=== PATIENT | female | born 1940 ===

== ENCOUNTER 2024-07-23 09:55 | Emergency (ER) | payer OTHER, SELFPAY ==
[2024-07-23 10:04] VITALS: BP 156/82
[2024-07-23 10:48] LABS: NT-proBNP 511 pg/ml; Troponin I < 0.012 ng/ml
[2024-07-23 11:09] LABS: ALT (SGPT) 72 U/L (0-35); AST (SGOT) 63 U/L (14-36); Albumin 4.1 g/dl (3.5-5.0); Alkaline Phosphatase 182 U/L (38-126); Blood Urea Nitrogen 11 mg/dl (7-17); Carbon Dioxide 23 mmol/L (22-30); Chloride 96 mmol/L (98-107); Glucose 106 mg/dl (70-99); Potassium 4.1 mmol/L (3.5-5.1); Sodium 133 mmol/L (135-145); Total Bilirubin 2.2 mg/dl (0.2-1.3); Total Protein 6.7 g/dl (6.3-8.2); eGFR > 60.00
[2024-07-23 11:20] LABS: % Basophils 0.4 % (0-2); % Immature Granulocytes 0.7 % (0-0.5); % Lymphocytes 6.5 % (20.5-51.1); % Monocytes 8.4 % (1.7-9.3); Absolute Basophils 0.1 10^3/uL (0-0.2); Absolute Eosinophils 0.2 10^3/uL (0-0.7); Absolute Immature Granulocytes 0.1 10^3/uL (0-0.05); Absolute Lymphocytes 1.2 10^3/uL (1.2-3.4); Absolute Monocytes 1.5 10^3/uL (0.1-0.6); Absolute Neutrophils 15.1 10^3/uL (1.4-6.5); Hematocrit 36.9 % (37.0-47.0); Hemoglobin 13.2 g/dL (12.0-16.0); Mean Corp Hgb Conc. 35.8 g/dL (33.0-37.0); Mean Corpuscular Hgb 34.7 pg (27.0-31.0); Mean Corpuscular Volume 97.1 fL (81.0-99.0); Nucleated Red Blood Cells % 0 %; Platelet Count 325 10^3/uL (130-400); Red Cell Dist. Width 14.1 % (11.5-14.5); White Blood Cell Count 18.1 10^3/uL (4.8-10.8)
--- NOTE | 2024-07-23 13:25 | ED.GENMED ---
History of Present Illness
General
Chief Complaint: Weakness
Source: patient
Time Seen by Provider: 07/23/24 12:58
History of Present Illness
History of Present Illness:
84-year-old female presents to the emergency room complaining of malaise. Patient states that she has felt a lack of energy for the past couple weeks. Patient had a cardioversion on July 14. For a month or 2 prior to that she was started on
metoprolol and amiodarone for A-fib. She has been continuing these medications. Patient felt like the medication was causing her to have the malaise but she spoke to her user experience lead to reduce the dosages. Despite that she does not feel any
better. Patient denies any chest pain, shortness of breath, cough, fever. She has noted some increased urination but no dysuria. Patient does not take any diuretics.
Phy Exam
Physical Exam
Physical Exam:
General: Awake, Alert, Oriented X3. No acute distress, appears stated age
Vitals: unremarkable
Head: Atraumatic
Eyes: Pupils equal, EOMI
Throat: Airway intact, no exudates
Neck: Trachea midline
Lungs: Clear and equal b/l
Heart: Regular rate, no murmurs
Abd: Soft, Nontender, No pulsatile mass
Neuro: Nonfocal
Skin: Warm, dry, no rash
Extremities: pulses equal b/l, trace edema
Course
Orders/Labs/Results
Orders:
Orders
07/23/24 10:07
ECG [Electrocardiogram (*1)] Urgent
Reason for Study: Fatigue / Weakness
EKG- Treatment ONCE
07/23/24 10:12
Complete Blood Count/With Diff Urgent
Comprehensive Metabolic Panel Urgent
NT-proBNP Urgent
Troponin I Urgent
07/23/24 13:21
CR Chest - 2 Views Urgent
Comment:
Reason For Exam: malaise
07/23/24 14:24
Urinalysis Reflex To Culture Urgent
Date Specimen was Collected: 07/23/24
Time Specimen was Collected: 13:38
Urine Microscopic Reflex Cult Urgent
Abnormal Lab Results
07/23/24 07/23/24
10:12 14:24
WBC 18.1 H 10^3/uL
(4.8-10.8)
RBC 3.80 L 10^6/uL
(4.20-5.40)
Hct 36.9 L %
(37.0-47.0)
MCH 34.7 H pg
(27.0-31.0)
Abs Immat Gran (auto) 0.1 H 10^3/uL
(0-0.05)
Absolute Neuts (auto) 15.1 H 10^3/uL
(1.4-6.5)
Absolute Monos (auto) 1.5 H 10^3/uL
(0.1-0.6)
Immature Gran % 0.7 H %
(0-0.5)
Neutrophils % 83.0 H %
(42.2-75.2)
Lymphocytes % 6.5 L %
(20.5-51.1)
Sodium 133 L mmol/L
(135-145)
Chloride 96 L mmol/L
(98-107)
Glucose 106 H mg/dl
(70-99)
Total Bilirubin 2.2 H mg/dl
(0.2-1.3)
AST 63 H U/L
(14-36)
ALT 72 H U/L
(0-35)
Alkaline Phosphatase 182 H U/L
(38-126)
Urine Ketones 1+ A
(Negative)
Ur Occult Blood Reflex 3+ A
(Negative)
Urine Bilirubin 1+ A
(Negative)
Leukocyte Esterase Rfl Trace A
(Negative)
Urine Albumin (Reflex) 1+ A
(Neg - Trace)
07/23/24 10:12
07/23/24 10:12
Vital Signs
Initial and Last Documented VS:
Initial Vital Signs
Temp Pulse Resp BP Pulse Ox
99.0 F 88 16 156/82 95
07/23/24 10:04 07/23/24 10:04 07/23/24 10:04 07/23/24 10:04 07/23/24 10:04
Last Documented Vital Signs
Temp Pulse Resp BP Pulse Ox
99.0 F 85 17 162/88 98
07/23/24 10:04 07/23/24 15:58 07/23/24 15:58 07/23/24 15:58 07/23/24 15:58
MDM/Problems Addressed
Differential Diagnosis Includes:
medication side effect, uti, electrolyte abn, viral illness
MDM/Problems Addressed:
Patient presents with fatigue and weakness. She is hemodynamically stable and afebrile. Labs show a mild elevation of her white blood cell count at 18.1. Chemistries show essentially normal findings. LFTs are mildly elevated. Patient states
these have been elevated before. There is no evidence of an unstable or acute process. Symptoms may be medication related. Recommend she discuss this with her user experience lead. Patient stable for discharge home and outpatient follow-up.
Chronic conditions affecting care: HTN and Arrhythmia
*EKG
Interpreted by ED Provider?: Yes
Heart Rate: 88
Rate: normal
Rhythm: sinus
[place]: normal axis
Interval: normal interval
Ischemia: no ischemia
*O[employer] Fishing Tool Operator Interpretation
Rate: normal
Interpretation: normal
Rhythm: sinus
*Critical Care Note
Total Time (30-74mins, 75-104mins- exclusive of procedures): Not Applicable
ED Attending Note
-
Portions of this chart may have been created with voice recognition software.� Occasional wrong word or��sound alike� substitutions may have occurred due to the inherent limitations of voice recognition software.
Discharge Plan
Departure
Patient Disposition: Home (Routine Discharge)
Date of Disposition: 07/23/24
Time of Disposition: 15:36
Patient with high blood pressure during this ER visit?: Yes
Condition: Good
Discharge Problem:
Malaise and fatigue
Instructions: Generalized Weakness (DC)
Referrals:
Nacho Pearson MD [Family Provider] -
Activity Restrictions/Additional Instructions:
Discussed possible medication changes with your user experience lead.
Interventions
Interventions:
*General Assessment Last Done: 07/23/24 13:30
ED- Fall Risk Assessment Last Done: 07/23/24 13:30
*Nursing Disposition Last Done: 07/23/24 15:59
ED- Cardiac Assessment Last Done: 07/23/24 13:30
ED- Neurological Assessment Last Done: 07/23/24 13:30
ED- Pulmonary Assessment Last Done: 07/23/24 13:30
Discharge Date and Time
Discharge Date/Time: 07/23/24 16:00
Print Language: LIBERIAN
[2024-07-23 14:34] LABS: Urine Albumin 1+ (Neg - Trace); Urine Bilirubin 1+ (Negative); Urine Character Clear (Clear); Urine Color Amber; Urine Glucose Negative (Negative); Urine Ketone 1+ (Negative); Urine Leukocyte Trace (Negative); Urine Nitrite Negative (Negative); Urine Occult Blood 3+ (Negative); Urine Specific Gravity 1.015 (<1.030); Urine Urobilinogen 1+ (Neg - 1+); Urine pH 6.5 (5.0-9.0)
[2024-07-23 14:54] LABS: Urine Calcium Oxalate Crystals Present
[2024-07-23 14:55] LABS: Urine Squamous Cell >30 /LPF (Few)
[2024-07-23 14:56] LABS: Urine Mucus Few; Urine Red Blood Cell 0-2 /HPF (0-2)
[2024-07-23 15:58] VITALS: BP 162/88
== END 2024-07-23 16:00 | disposition home or self-care (01) ==
LOC: EMR 09:55
PROVIDERS: Emergency Medicine; EMERGENCY PHYSICIAN Emergency Medicine; FAMILY PHYSICIAN Internal Medicine
DX: R53.81 Other malaise (principal); R53.83 Other fatigue; I10 Essential (primary) hypertension; I48.91 Unspecified atrial fibrillation; Z79.899 Other long term (current) drug therapy
CPT/HCPCS: 99283; 71046; 80053; 81003; 81015; 83880; 84484; 85025; 93005

== ENCOUNTER 2025-09-18 07:52 | Emergency (ER) | payer OTHER, SELFPAY ==
[2025-09-18 08:00] VITALS: BP 176/60; BMI 31.0
--- NOTE | 2025-09-18 08:00 | ED.GENMED ---
History of Present Illness
General
Chief Complaint: Heart Rate Problem
Time Seen by Provider: 09/18/25 08:00
History of Present Illness
History of Present Illness:
FOCUSED PAST MEDICAL HISTORY
- Atrial fibrillation, high blood pressure
REVIEW OF OLD RECORDS
- I reviewed records, the patient was seen here in July 2024 with malaise; on July 14, 2024, the patient had cardioversion and prior to that was on metoprolol and amiodarone for atrial fibrillation. In July 2024 her white count was
elevated 18 point
Note:
CHIEF COMPLAINT(S)
Anxiety and shortness of breath since last night.
HISTORY OF PRESENT ILLNESS
The patient is an 85-year-old female with a history of atrial fibrillation and prior cardioversion in July 2020, presenting with symptoms of anxiety and shortness of breath that began last night after going to bed around 10 PM. She reports
feeling progressively more anxious and experienced shortness of breath. She denies chest pain and headaches. The patient acknowledges a prior episode of atrial fibrillation managed by her orthophotography technician, Dr. Yuan in [place]. Her current heart rate
is approximately 70 beats per minute, which is relatively stable despite her feelings of shakiness. She did not miss any doses of her medications, which include Eliquis (Apixaban), Metoprolol (Toprol), and Amiodarone, and took them last night when
she began feeling uneasy.
The patient lives on the second floor and mentioned difficulty getting down the stairs due to knee pain, prompting her to seek medical attention and arrive by ambulance. She reports her son and daughter live with her, and her son is expected to
arrive at the hospital.
PAST MEDICAL AND SURGICAL HISTORY
- Atrial fibrillation with history of cardioversion.
SOCIAL DETERMINANTS AFFECTING HEALTH
The patient lives with her son and daughter and resides in a second-floor condo. She mentions knee pain affecting her mobility, particularly when using stairs.
MEDICATIONS
- Apixaban (Eliquis)
- Metoprolol (Toprol)
- Amiodarone
PHYSICAL EXAM
General: Alert, no acute distress.
Skin: Warm, dry.
Head: Normocephalic, atraumatic.
Neck: Supple, trachea midline.
Eye Ears, Nose, Mouth and Throat: Oral mucosa moist.
Cardiovascular: Normal peripheral perfusion, No edema. Regular rate and rhythm
Respiratory: Respirations are non-labored.
Gastrointestinal: Abdomen nondistended.
Back: Normal range of motion, Normal alignment.
Musculoskeletal: Normal ROM, normal strength.
Neurological: Alert and oriented to person, place, time, and situation. No focal neurological deficit observed.
Psychiatric: Cooperative, appears somewhat anxious
PROBLEM LIST
Acute:
- Anxiety
- Shortness of breath
- Knee pain
Chronic:
- Atrial fibrillation
PLAN
- Conduct blood work to further evaluate the patient�s condition.
- Consider cardioversion if necessary, based on rhythm assessment and patient symptoms.
- Monitor heart rate and rhythm closely given the history of atrial fibrillation and need for possible rhythm management.
DIFFERENTIAL DIAGNOSIS
The differential diagnosis includes, in no particular order and is not limited to:
1. Anxiety disorder
2. Congestive heart failure exacerbation
3. Chronic obstructive pulmonary disease exacerbation
4. Panic attack
5. Pulmonary embolism
6. Atrial flutter
7. Hypoxia due to underlying respiratory condition
8. Electrolyte imbalance
9. Acute coronary syndrome
10. Medication-related side effects
EKG
- Sinus, normal rate, no acute ST abnormality
LABS
- Troponin 0.019, TSH elevated but free T4 is normal, CBC unremarkable, chemistries unremarkable
UPDATE
- Unremarkable labs
- Sinus rhythm
- No significant symptoms on reassessment
- Spoke to son at bedside
- CXR neg
- Suspect anxiety component
DIAGNOSIS
Palpitations
Phy Exam
Physical Exam
Physical Exam:
See HPI
Course
Orders/Labs/Results
Orders:
Orders
09/18/25 07:54
Electrocardiogram (*1) Urgent
Reason for Study: Shortness of Breath
09/18/25 07:59
EKG- Treatment ONCE
CR Chest - 2 Views Urgent
Comment:
Reason For Exam: cough
09/18/25 08:06
Complete Blood Count/With Diff Urgent
Free T4 Urgent
TSH Reflex To Free T4 Urgent
Comment: ADD ON
Troponin I Urgent
09/18/25 08:08
Add On- LAB Urgent
Tests Added?: magnesium, TSH reflex fT4
EKG- Treatment ONCE
09/18/25 09:20
Comprehensive Metabolic Panel Urgent
Magnesium Urgent
Abnormal Lab Results
09/18/25 09/18/25
08:06 09:20
RBC 4.00 L 10^6/uL
(4.20-5.40)
MCV 101.3 H fL
(81.0-99.0)
MCH 34.8 H pg
(27.0-31.0)
Absolute Neuts (auto) 6.8 H 10^3/uL
(1.4-6.5)
Absolute Monos (auto) 0.7 H 10^3/uL
(0.1-0.6)
Sodium 133 L mmol/L
(135-145)
BUN 22 H mg/dl
(7-17)
TSH (Reflex) 11.90 H uIU/ml
(0.47-4.68)
09/18/25 08:06
09/18/25 09:20
Vital Signs
Initial and Last Documented VS:
Initial Vital Signs
Temp Pulse Resp BP Pulse Ox
36.9 C 65 24 176/60 94
09/18/25 08:00 09/18/25 08:00 09/18/25 08:00 09/18/25 08:00 09/18/25 08:00
Last Documented Vital Signs
Temp Pulse Resp BP Pulse Ox
36.9 C 68 26 128/63 96
09/18/25 08:00 09/18/25 09:00 09/18/25 09:00 09/18/25 09:00 09/18/25 08:20
*Pulse Oximetry
Patient hypoxic: no
*Critical Care Note
Total Time (30-74mins, 75-104mins- exclusive of procedures): Not Applicable
ED Attending Note
-
Portions of this chart may have been created with voice recognition software.� Occasional wrong word or��sound alike� substitutions may have occurred due to the inherent limitations of voice recognition software.
Discharge Plan
Departure
Referrals:
UNKNOWN - PT DOES,NOT KNOW [Family Provider]
Interventions
Interventions:
*Risk Screen - Suicide Last Done: 09/18/25 08:00
*General Assessment Last Done: 09/18/25 08:00
*Neglect/Abuse Screening Last Done: 09/18/25 08:00
*ED COVID-19 Vaccine History Last Done: 09/18/25 08:00
*ED Influenza Vaccine History Last Done: 09/18/25 08:00
ED- Cardiac Assessment Last Done: 09/18/25 08:04
ED- Pulmonary Assessment Last Done: 09/18/25 08:04
Discharge Date and Time
Print Language: BULGARIAN
[2025-09-18 08:41] LABS: Troponin I 0.019 ng/ml
[2025-09-18 08:47] LABS: Hematocrit 40.5 % (37.0-47.0); Hemoglobin 13.9 g/dL (12.0-16.0); Mean Corp Hgb Conc. 34.3 g/dL (33.0-37.0); Mean Corpuscular Volume 101.3 fL (81.0-99.0); Nucleated Red Blood Cells % 0 %; Platelet Count 352 10^3/uL (130-400); Red Cell Dist. Width 14.2 % (11.5-14.5)
[2025-09-18 09:00] VITALS: BP 128/63
[2025-09-18 10:00] VITALS: BP 159/67
[2025-09-18 10:05] LABS: ALT (SGPT) 15 U/L (0-35); AST (SGOT) 26 U/L (14-36); Albumin 4.3 g/dl (3.5-5.0); Alkaline Phosphatase 69 U/L (38-126); Blood Urea Nitrogen 22 mg/dl (7-17); Calcium 9.8 mg/dl (8.4-10.2); Carbon Dioxide 27 mmol/L (22-30); Chloride 103 mmol/L (98-107); Estimated Creatinine Clearance 54 ml/min; Glucose 91 mg/dl (70-99); Magnesium 1.9 mg/dl (1.6-2.3); Potassium 4.7 mmol/L (3.5-5.1); Sodium 133 mmol/L (135-145); Total Protein 7.3 g/dl (6.3-8.2); eGFR > 60.00
== END 2025-09-18 10:59 | disposition home or self-care (01) ==
LOC: EMR 07:52
PROVIDERS: EMERGENCY PHYSICIAN Emergency Medicine
DX: R00.2 Palpitations (principal); I48.91 Unspecified atrial fibrillation; I10 Essential (primary) hypertension; Z79.899 Other long term (current) drug therapy
CPT/HCPCS: 99285; 71046; 80053; 83735; 84439; 84443; 84484; 85025; 93005

== ENCOUNTER 2025-09-30 22:54 | Inpatient (IN) | payer OTHER, SELFPAY ==
[2025-09-30] VITALS (7 sets, daily range): BP systolic 124–143; BP diastolic 51–91; BMI 28.4
[2025-09-30 18:44] LABS: ALT (SGPT) 13 U/L (0-35); AST (SGOT) 22 U/L (14-36); Albumin 4.8 g/dl (3.5-5.0); Alkaline Phosphatase 74 U/L (38-126); Blood Urea Nitrogen 33 mg/dl (7-17); Calcium 10.7 mg/dl (8.4-10.2); Carbon Dioxide 25 mmol/L (22-30); Chloride 101 mmol/L (98-107); Glucose 114 mg/dl (70-99); Potassium 4.6 mmol/L (3.5-5.1); Sodium 136 mmol/L (135-145); Total Protein 7.6 g/dl (6.3-8.2); eGFR > 60.00
[2025-09-30 19:07] LABS: Hematocrit 41.4 % (37.0-47.0); Hemoglobin 14.4 g/dL (12.0-16.0); Mean Corp Hgb Conc. 34.8 g/dL (33.0-37.0); Mean Corpuscular Volume 102.7 fL (81.0-99.0); Nucleated Red Blood Cells % 0 %; Platelet Count 426 10^3/uL (130-400); Red Cell Dist. Width 13.9 % (11.5-14.5)
--- NOTE | 2025-09-30 19:37 | ED.GENMED ---
History of Present Illness
General
Chief Complaint: Breathing Problem
Source: patient
Exam Limitations: none
Time Seen by Provider: 09/30/25 19:31
History of Present Illness
History of Present Illness:
See MDM
Past History
Past History
ED Past Medical History: Arrthythmia, HTN and Psychiatric
ED Past Surgical History: Cholecystectomy and Gynecological
Social History
Tobacco: Non-smoker
Alcohol: None
Phy Exam
Physical Exam
Physical Exam:
See MDM
Scores
Heart Failure Risk
Heart Failure Risk Score: Not Applicable
Course
Orders/Labs/Results
Orders:
Orders
09/30/25 18:08
EKG [Electrocardiogram (*1)] Urgent
Reason for Study: Shortness of Breath
EKG- Treatment ONCE
09/30/25 18:19
BNP [NT-proBNP] Urgent
CBC/With Diff [Complete Blood Count/With Diff] Urgent
CMP [Comprehensive Metabolic Panel] Urgent
Troponin I Urgent
Comment: ADD ON
09/30/25 19:54
COVID-19 Antigen Urgent
Source: Nasal Swab
Influenza A+B Rapid Molecular Urgent
IRENE Source: Nasal Swab
Specimen Description:
09/30/25 20:38
Add On- LAB Urgent
Tests Added?: troponin
CT Chest PE Study Urgent
Comment:
Reason For Exam: sob
09/30/25 22:18
Azithromycin 500 mg/250 ml [Zithromax Infusion] 500 mg in 250 ml IV NOW
CefTRIAXone [Rocephin] 1,000 mg IV NOW STA
09/30/25 22:30
Blood Culture Q30M
IRENE Source: Blood/Venous
Specimen Description:
09/30/25 23:00
Blood Culture Q30M
IRENE Source: Blood/Venous
Specimen Description:
Abnormal Lab Results
09/30/25
18:19
WBC 12.1 H 10^3/uL
(4.8-10.8)
RBC 4.03 L 10^6/uL
(4.20-5.40)
MCV 102.7 H fL
(81.0-99.0)
MCH 35.7 H pg
(27.0-31.0)
Plt Count 426 H 10^3/uL
(130-400)
Absolute Neuts (auto) 9.1 H 10^3/uL
(1.4-6.5)
Absolute Monos (auto) 0.8 H 10^3/uL
(0.1-0.6)
Lymphocytes % 16.2 L %
(20.5-51.1)
BUN 33 H mg/dl
(7-17)
Glucose 114 H mg/dl
(70-99)
Calcium 10.7 H mg/dl
(8.4-10.2)
Total Bilirubin 1.4 H mg/dl
(0.2-1.3)
09/30/25 18:19
09/30/25 18:19
Vital Signs
Initial and Last Documented VS:
Initial Vital Signs
Temp Pulse Resp BP Pulse Ox
97.1 F 71 15 139/91 97
09/30/25 18:09 09/30/25 18:09 09/30/25 18:09 09/30/25 18:09 09/30/25 18:09
Last Documented Vital Signs
Temp Pulse Resp BP Pulse Ox
97.1 F 66 14 124/55 95
09/30/25 18:09 09/30/25 21:53 09/30/25 21:53 09/30/25 21:53 09/30/25 21:53
MDM/Problems Addressed
Differential Diagnosis Includes:
Note:
CHIEF COMPLAINT(S)
Shortness of breath
HISTORY OF PRESENT ILLNESS
The patient is an 85-year-old female with a history of atrial fibrillation. She presents with shortness of breath which has been ongoing recently. The patient mentions a recent episode where she was standing and felt a ash in her chest, prompting
her to take alprazolam, which alleviated her symptoms. She does not always feel her atrial fibrillation episodes but reports previous occurrences of shortness of breath associated with atrial fibrillation. During a recent episode noted on her
lunchroom monitor, she was short of breath and felt weak. She denies fever but reports some cognitive fogginess.
PAST MEDICAL AND SURGICAL HISTORY
History of atrial fibrillation.
PHYSICAL EXAM
General: Alert, no acute distress.
Skin: Warm, dry.
Head: Normocephalic, atraumatic
Neck: Appears supple, trachea midline.
Eyes, Ears, Nose, Mouth, and Throat: Moist mucous membranes
Cardiovascular: No signs of cyanosis. Regular rate and rhythm
Respiratory: Respirations are non-labored. Lungs clear
Abdomen: Non-distended
Musculoskeletal: No deformities
Neurological: No focal neurological deficit observed.
Psychiatric: Cooperative, appropriate mood and affect.
DIFFERENTIAL DIAGNOSIS
The Differential Diagnosis includes, in no particular order and is not limited to:
- Atrial fibrillation with rapid ventricular response
- Congestive heart failure
- Pulmonary embolism
- Chronic obstructive pulmonary disease exacerbation
- Pneumonia
- Asthma exacerbation
- Anemia
- Myocardial infarction
- Anxiety or panic disorder
- Medication side effects
PLAN
- Perform an electrocardiogram (EKG) to evaluate for atrial fibrillation.
- Obtain a chest X-ray to assess for alternative causes of shortness of breath.
- Continue monitoring oxygen saturation and consider further oxygen therapy if needed.
MEDICAL DECISION MAKING
- Complexity of Data Reviewed: Chronic conditions affecting care such as atrial fibrillation.
- Data:
- Category 1: Tests planned include EKG and chest X-ray.
- Category 2: No additional historian involved in the decision-making process.
- Category 3: Future reassessment planned after initial tests to evaluate treatment efficacy.
- Risk:
- Prescription medication was prescribed for home management of symptoms related to atrial fibrillation (metoprolol).
SUMMARY OF ENCOUNTER
An 85-year-old female with a history of atrial fibrillation was seen in the emergency department due to shortness of breath. A recent chest X-ray showed no abnormalities, so a CT scan was performed to rule out pulmonary embolism. The CT scan
indicated a concern for possible pneumonia. The patient experienced shortness of breath with minimal exertion, and her oxygen saturation dropped to 88% during ambulation. As a result, intravenous antibiotics were initiated.
DISPOSITION
Admit
ASSESSMENT
The patient is experiencing shortness of breath potentially due to pneumonia, with a history of atrial fibrillation contributing to her symptoms.
INDEPENDENT REVIEW OF LABS AND INTERPRETATION OF TESTS
My independent interpretation of the CT scan suggests a concern for possible pneumonia.
MEDICAL DECISION MAKING
Chronic conditions affecting care include history of atrial fibrillation. Differential diagnosis includes atrial fibrillation with rapid ventricular response, congestive heart failure, pulmonary embolism, chronic obstructive pulmonary disease
exacerbation, pneumonia, asthma exacerbation, anemia, myocardial infarction, anxiety or panic disorder, and medication side effects.
Category 1:
- My independent interpretation of the CT scan indicates possible pneumonia.
Category 2:
- None.
Category 3:
- None.
DIAGNOSIS
- J18.9 Pneumonia, unspecified organism
- I48.91 Unspecified atrial fibrillation
*Pulse Oximetry
SaO2: 97
Oxygen Mode of Delivery: Room air
Patient hypoxic: no
*Critical Care Note
Total Time (30-74mins, 75-104mins- exclusive of procedures): Not Applicable
ED Attending Note
-
Portions of this chart may have been created with voice recognition software.� Occasional wrong word or��sound alike� substitutions may have occurred due to the inherent limitations of voice recognition software.
Discharge Plan
Departure
Patient Disposition: Admit
Date of Disposition: 09/30/25
Time of Disposition: 22:20
Admit to: Med/Surg
Presentation/result/management discussed w/ accepting MD/DO: Hospitalist
Discharge Problem:
PNA (pneumonia)
Prescriptions:
No Action
amiodarone 200 mg tablet
100 mg PO HS
metoprolol succinate 25 mg tablet extended release 24 hr
25 mg PO DAILY
Eliquis 5 mg tablet
5 mg PO BID
Referrals:
NONE,* [Active, Internal Medicine]
Interventions
Interventions:
*Risk Screen - Suicide Last Done: 09/30/25 18:09
*General Assessment Last Done: 09/30/25 18:09
*Neglect/Abuse Screening Last Done: 09/30/25 18:09
*ED COVID-19 Vaccine History Last Done: 09/30/25 18:09
*ED Influenza Vaccine History Last Done: 09/30/25 18:09
ED- Cardiac Assessment Last Done: 09/30/25 19:41
ED- Pulmonary Assessment Last Done: 09/30/25 19:41
Discharge Date and Time
Print Language: PALAUAN
[2025-09-30 20:15] LABS: COVID-19 Antigen Negative (Negative)
[2025-09-30 21:33] LABS: Troponin I < 0.012 ng/ml
--- NOTE | 2025-09-30 22:21 | HPS.HSE ---
Family Physician
-
Family Physician: Nacho Pearson
Chief Complaint
-
sob
History of Present Illness
85-year-old female with a history of atrial fibrillation,HTN presented to us with sob which is worse with exertion. she felt racing of her heart last night. she denied worsening of her chronic cough. denied chest pain, denied orthopnea. denied
edema. denied fever, chills. she has chronic congestion. denied abdominal pain,n,v,d. denied dysuria or hematuria.
Patient received a dose of azithromycin and ceftriaxone for pneumonia. Blood culture sent from ER. Admitting for further management
Medical History
Past Medical History
Past Medical History: Reports Other
Additional Past Medical History:
A-fib, hypertension, hyperlipidemia, varicose veins
Past Surgical History: Reports Other
Additional Past Surgical History:
Tubularization, hysterectomy,
Social History
Tobacco: Non-smoker
Alcohol: None
Drug: None
Family History
Family History: Not pertinent
Allergies / Home Medications
Allergies reflects when Allergies were last updated in [facility].
Home Medications with original date entered in [facility]
Allergy/Medication List:
Allergies
Allergy/AdvReac Type Severity Reaction Status Date / Time
No Known Allergies Allergy Verified 09/18/25 07:54
Home Medications
amiodarone 200 mg tablet 100 mg PO HS 09/30/25
apixaban 5 mg tablet (Eliquis) 5 mg PO BID 09/30/25
metoprolol succinate 25 mg tablet,extended release 24 hr 25 mg PO DAILY 09/30/25
Review of Systems
-
Constitutional: Reports No Symptoms
EENT: Reports No Symptoms
Respiratory: Reports Trouble Breathing
Cardiac: Reports No Symptoms
Abdomen/GI: Reports No Symptoms
: Reports No Symptoms
Musculoskeletal: Reports No Symptoms
Skin: Reports No Symptoms
Neurological: Reports No Symptoms
Endocrine: Reports No Symptoms
Hematologic/Lymphatic: Reports No Symptoms
Psych: Reports No Symptoms
Physical Exam
Vital Signs
Vital Signs
Temp Pulse Resp BP Pulse Ox
97.1 F 66 14 124/55 95
09/30/25 18:09 09/30/25 21:53 09/30/25 21:53 09/30/25 21:53 09/30/25 21:53
Physical Exam
General: Well Developed, Well Nourished and No Apparent Distress
HEENT: NormoCephalic, Moist mucous membranes and Atraumatic
Respiratory: Clear
Cardiac: S1/S2 and Regular Rhythm; No Murmur or Rub
GI: Soft, Non Tender, Non Distended and Normal Bowel Sounds; No Organomegaly
Rectal: Deferred by Provider
Musculoskeletal: No Clubbing, No Cyanosis and No Edema
Skin: No Rash
Neuro: AO x 3 and Nonfocal/grossly intact
Psych: Calm
Laboratory Results
-
09/30/25 18:19
09/30/25 18:19
Laboratory Results
Total Bilirubin 1.4 mg/dl (0.2-1.3) H 09/30/25 18:19
AST 22 U/L (14-36) 09/30/25 18:19
ALT 13 U/L (0-35) 09/30/25 18:19
Alkaline Phosphatase 74 U/L (38-126) 09/30/25 18:19
Troponin I < 0.012 ng/ml 09/30/25 18:19
Data Reviewed
-
CT Scan: Report Reviewed by me
Lab Data: Labs Reviewed by me
Impression/Plan
-
# possible pneumonia
#exertional hypoxia
- 88 percentage on room air upon ambulation, improved with resting
- Continue supplemental oxygen using it in 95, wean as tolerated
-IV azithromycin and ceftriaxone continued
-obtain procal
-Tylenol p.o. for fever or pain
- WBCs 12.1, COVID-negative
- Chest CT with no evidence of acute PE, large hiatal hernia,Small nodular opacities in the right middle lobe and right lower lobe, more likely to be inflammatory/infectious. Short-term follow-up imaging after treatment can be considered.
-consider pulm if still with exertional hypoxia
# Paroxysmal A-fib
- EKG was normal sinus rhythm
- Amiodarone, Eliquis, metoprolol continue
#DVT prophylaxis
- On Eliquis
# CODE STATUS
- Full code
--- NOTE | 2025-09-30 22:48 | W.PN.UPDATE ---
Update Note
Progress Note Update
Patient seen in conjunction with EVP MANAGING DIRECTOR. I agree with the findings on history and physical. I am going to set up unless otherwise stated.
Briefly, this is a 85-year-old female with past medical history significant for hypertension, hyperlipidemia, atrial fibrillation on anticoagulation who presents to the emergency department with shortness of breath.
Patient mostly reports chest symptoms that are concerning that she has on awareness of atrial fibrillation and is always concerned that she is in atrial fibrillation. She reports that there is a son who has a bronchitis recently and her son lives
with her. She reports some sinus symptoms including sinus congestion and she feels like she is not able to cough up any of 4 mucus. She denies having any fevers or chills. She denies feeling short of breath at rest. She reports chronic dyspnea
on exertion. She denies any chest pain or palpitations. She denies lightheadedness or dizziness. She denies any lower extremity swelling. She has been on apixaban and compliant for atrial fibrillation.
In the emergency department she was afebrile, blood pressure was 124/55 with a pulse of 66 and satting 95% at rest, however with activity and ambulation she desats to about 88%. ECG shows a normal sinus rhythm at a rate of 66. Troponin is
negative. She had a CT scan of the chest with contrast which was negative for PE. Small nodular opacities in the right middle lobe and right lower lobe, more likely to be inflammatory/infectious. Flu and COVID-negative.
On exam she had clear lungs bilaterally without wheezing or crackles or rhonchi. There is no lower extremity edema. She has very severe kyphosis and some scoliosis.
Assessment and plan
85-year-old with history of A-fib on anticoagulation who presents emergency department with some mild complaint of shortness of breath and found to be hypoxic with activity and right lower lobe inflammatory infiltrate. She has no prior history of
COPD, interstitial lung disease. She is afebrile here but does have leukocytosis 12.1. She is otherwise stable. Presumed atypical pneumonia.
� Admit to [facility] observation
� Check procalcitonin
-Check urinary Legionella and streptococcal antigen
� Continue ceftriaxone and azithromycin for now
� Incentive spirometry
� Ambulatory oxygenation in a.m. to check for hypoxia
� Continue her apixaban and Metoprolol
-Hypoxia appears out of proportion to the minimal findings on CT scan suspicion is likely for shunt versus some restrictive lung disease although she shows no signs of CO2 retention. Will consider pulmonary consult at that time.
DVT prophylaxis�on apixaban
CODE STATUS�full code
[2025-09-30] MEDS: ZITHROMAX INFUSION 250 IV (23:05)
[2025-09-30] MEDS: ROCEPHIN 1000 MG IV (23:05)
[2025-09-30 23:50] LABS: Procalcitonin < 0.05 ng/ml (0.0-0.25)
[2025-10-01] VITALS: BP 152/64
[2025-10-01 00:33] VITALS: BP 163/74; BMI 28.6
[2025-10-01] MEDS: ELIQUIS PO (00:45)
[2025-10-01] MEDS: MELATONIN 5 MG PO (01:11)
[2025-10-01 07:09] LABS: Blood Urea Nitrogen 26 mg/dl (7-17); Calcium 9.9 mg/dl (8.4-10.2); Carbon Dioxide 26 mmol/L (22-30); Chloride 104 mmol/L (98-107); Estimated Creatinine Clearance 47 ml/min; Glucose 95 mg/dl (70-99); Potassium 4.2 mmol/L (3.5-5.1); Sodium 137 mmol/L (135-145); eGFR > 60.00
[2025-10-01 07:53] LABS: Hematocrit 38.6 % (37.0-47.0); Hemoglobin 13.3 g/dL (12.0-16.0); Mean Corp Hgb Conc. 34.5 g/dL (33.0-37.0); Mean Corpuscular Volume 103.5 fL (81.0-99.0); Platelet Count 347 10^3/uL (130-400); Red Cell Dist. Width 13.8 % (11.5-14.5)
[2025-10-01 07:55] VITALS: BP 134/88
--- NOTE | 2025-10-01 08:08 | W.PN.HOSP.TC ---
Addendum entered and electronically signed by Cameron Whitehead MD 10/01/25 16:55:
Home Oxygen assessment noted no needs, exertional hypoxia significantly improved/resolved
Medically stable for discharge home with home services and outpatient follow up recommendations.
Discussed with patient, patient's son Konstantin, landen denny, RN, respiratory therapist
Total Time Preparing Discharge __40 minutes including examination of the patient, summary of the hospital stay, instructions for continuing care to all relevant caregivers; and preparation of discharge records, prescriptions, and referral
forms if necessary.
Original Note:
Today's Communication/Plan
-
home oxygen assessment
cont azithromycin
Assessment / Plan
Assessment / Plan
Physical Exam
General: no acute distress, appears comfortable at this time
HEENT: NormoCephalic, Moist mucous membranes and Atraumatic
Respiratory: Clear stable respiratory status on room air
Cardiac: S1/S2 and Regular Rhythm; No Murmur or Rub
GI: Soft, Non Tender, Non Distended and Normal Bowel Sounds; No Organomegaly
Musculoskeletal: Kyphosis, No Clubbing, No Cyanosis and No Edema
Skin: No Rash
Neuro: AO x 3 conversant coherent
Psych: Calm
85F HTN HLD A-fib Eliquis p/w exertional dyspnea hypoxia w/ activity. CT neg for PE but noted signs possible infection vs inflammation right middle and lower lobe lung.
# possible pneumonia vs bronchitis (less likely PNA neg procal)
#exertional hypoxia
- stable respiratory status room air at rest
-received once empiric ceftriaxone and IV azithromycin, IV azithromycin transitioned to PO, planned total 5 days azithromycin
-Tylenol prn
- COVID-negative
- Chest CT with no evidence of acute PE, large hiatal hernia,Small nodular opacities in the right middle lobe and right lower lobe, more likely to be inflammatory/infectious. Short-term follow-up imaging after treatment can be considered.
-PT/OT appreciated HH
-10/01 RN noted patient desaturated to 80% with ambulation, recovered with rest
-Home Oxygen assessment ordered
-Pulm eval outpt vs inpt
# Paroxysmal A-fib
- EKG was normal sinus rhythm
- Amiodarone, Eliquis, metoprolol continue
#DVT prophylaxis
- On Eliquis
# CODE STATUS
- Full code
Discussed with patient and patient's son Konstantin
I spent a total of 45 minutes with the patient or on the floor. More than 50% of this time involved counseling and coordination of care.
Anticipated Discharge: 24 - 48 hours
Subjective/Interval History
-
Date of Service: October 01, 2025
Seen and examined at bedside in no acute distress, resting comfortably in bed, respiratory status stable on room air. Reports some improvement in exertional dyspnea. Denies new acute issues. Eager to go home. Son Konstantin present during
evaluation.
Objective Data
-
Labs:
Laboratory Results
10/01/25
05:40
WBC 12.7 H
Hgb 13.3
Hct 38.6
Plt Count 347
Sodium 137
Potassium 4.2
Chloride 104
Carbon Dioxide 26
BUN 26 H
Creatinine 0.8
Glucose 95
Calcium 9.9
Vital Signs:
Vital Signs
Temp Pulse Resp BP Pulse Ox
98.5 F 74 24 163/74 94
10/01/25 00:33 10/01/25 00:33 10/01/25 00:33 10/01/25 00:33 10/01/25 00:33
I&O
09/30/25 10/01/25 10/02/25
06:59 06:59 06:59
Intake Total 0 / 0
Balance 0 / 0
[2025-10-01] MEDS: ZITHROMAX 500 MG PO (10:16)
[2025-10-01] MEDS: ELIQUIS 5 MG PO (10:16)
[2025-10-01] MEDS: TOPROL XL 25 MG PO (10:16)
--- NOTE | 2025-10-01 14:30 | PTCARENOTE ---
patient ambulated with assistance and rolling walker, upon returning to bed patient with dyspnea, POX ambulating on room air 80%, assisted to chair and POX increased to 95% after 15 seconds and dyspnea improved. plan of care ongoing.
[2025-10-01 15:00] VITALS: BP 140/69
--- NOTE | 2025-10-01 15:47 | CM ---
Addendum entered by Vidhi Mendoza 10/01/25 16:43:
Per Respiratory, no home oxygen needed
Plan: Discharge to Home with home health; son will transport home
Addendum entered by Vidhi Mendoza 10/01/25 16:16:
CM contacted [facility] @ [facility] # [phone]; Vendor can support on the Holiday tomorrow
When available on the Chart, Fax Order, Home Oxygen Assessment, Face Sheet, and Clinicals to
Addendum entered by Vidhi Mendoza 10/01/25 16:10:
discharge on hold; patient needs home oxygen evaluation
Original Note:
Met with patient and son Konstantin bedside
Pharmacy verified: [facility] @ [address] [place] [address]
Lives with adult son and daughter; 2nd floor two bedroom Condo; 12 steps to enter; railing present; bath has walk-in shower with seat and grab bar
PLOF: reported she was independent with personal care; ambulated with Rollator; able to do the stairs; no longer driving. Son and Daughter perform offset assistant press operator
No SNF or Home Health utilization history
Son will transport home
Agreeable to home health services; agency options identified; preference is [facility]; referral sent to [facility] liaison
Plan: Discharge to home today with home health services
--- NOTE | 2025-10-01 15:59 | VNURNOTE ---
Home health liaison met with patient and son Konstantin to discuss [facility] services, visit scheduling/frequency, homebound status and pet policy. Patient agreeable to [facility] services and understands home visits will be 1-2 times a week to assess and
teach medical management. Patient aware a visiting nurse will contact her for start of care within 1 week after discharge from . [facility] Referral completed in care port
--- NOTE | 2025-10-01 17:09 | W.DCSUMMARY ---
Discharge Summary
Discharge Data
Date of Admission: 09/30/25
Date of Discharge: 10/01/25
-
Pending Results: Yes
Additional Pending Results:
blood culture results
Discharge Plan
-
Patient Disposition: Home with Home Care
Discharge Diagnosis/Procedures: Viral Bronchitis
Condition: Fair
Diet: Regular
Activity: As tolerated
Driving Restrictions: As prior to admission
Bathing Restrictions: None
Blood Work: Repeat CBC with primary care provider in 1 week of discharge.
Others Tests: Follow up with primary care provider or master control engineer for repeat CT chest in 1 month of discharge.
Follow up with master control engineer for pulmonary function testing
Other Services: PT and OT
Activity Restrictions/Additional Instructions:
Follow up with primary care provider in 1 week of discharge and Cross Tie Tram Loader in 2-4 weeks of discharge.
For bronchitis you've been prescribed 3 more days of Azithromycin.
Please take medications as prescribed/recommended and follow up with primary care provider and/or other healthcare provider involved in your care for further adjustment to your medication regimen as necessary.
Referrals:
Queta Michele DO [Active, Pulmonary Medicine] - in two to four weeks
Nacho Pearson MD [Family Provider, Internal Medicine] - in one week
Prescriptions:
New
azithromycin 250 mg Tablet
250 mg PO DAILY Qty: 3 0RF
Continued
amiodarone 200 mg tablet
100 mg PO HS
metoprolol succinate 25 mg tablet extended release 24 hr
25 mg PO DAILY
Eliquis 5 mg tablet
5 mg PO BID
Discharge Orders:
Discharge Patient (As Directed); Ordered 10/01/25
Ordered By: Cameron Whitehead
Discharge Date and Time
Print Language: FIJIAN
[2025-10-01 18:24] LABS: Urine Character Slightly Cloudy (Clear)
[2025-10-01 18:33] LABS: Urine Urothelial Cell 0-2 /LPF (FEW)
== END 2025-10-01 18:48 | disposition home health service (06) | DRG 203 ==
LOC: 4 EAST ACU 22:54
PROVIDERS: Registered Nurse; Student in an Organized Health Care Education/Training Program; ADMITTING PHYSICIAN Internal Medicine; ATTENDING PHYSICIAN Internal Medicine; EMERGENCY PHYSICIAN Student in an Organized Health Care Education/Training Program; FAMILY PHYSICIAN Internal Medicine
DX: J20.8 Acute bronchitis due to other specified organisms (principal); I10 Essential (primary) hypertension; I48.0 Paroxysmal atrial fibrillation; R09.02 Hypoxemia; E78.5 Hyperlipidemia, unspecified; R91.8 Other nonspecific abnormal finding of lung field; Z79.01 Long term (current) use of anticoagulants; Z90.710 Acquired absence of both cervix and uterus; Z11.52 Encounter for screening for COVID-19
CPT/HCPCS: 71275; 80048; 80053; 81003; 81015; 83880; 84145; 84484; 85025; 85027; 87040; 87086; 87449; 87502; 87811; 87899; 93005; 96365; 96375; 97162; 97166; 99285; Q9967